=== PATIENT | male | born 1945 | race Caucasian/White ===

== ENCOUNTER 2022-03-29 10:54 | Emergency (ER) | payer MEDICARE, SELFPAY ==
[2022-03-29 11:14] VITALS: BP 129/79; PULSE 62; RESP 18; TEMP 36.8; O2SAT 100; BMI 29.5
[2022-03-29 11:42] LABS: Add Manual Diff / Slide Review NO; Basophils Absolute Auto 100 /uL (0-100); Basophils Percent Auto 0.7 % (0-2); Eosinophils Absolute Auto 300 /uL (0-450); Eosinophils Percent Auto 3.1 % (2-4); Hematocrit 42.2 % (41-53); Hemoglobin 14.2 g/dL (13.5-17.5); Lymphocytes Absolute Auto 2600 /uL (1100-4500); Lymphocytes Percent Auto 32.4 % (25-40); Mean Corpuscular HGB Conc 33.7 % (30-36); Mean Corpuscular Hemoglobin 27.6 PG (26-34); Mean Corpuscular Volume 81.8 fL (80-100); Monocytes Absolute Auto 600 /uL (0-900); Neutrophils Absolute Auto 4600 /uL (1500-7000); Neutrophils Percent Auto 56.8 % (50-75); Platelet Count 330 X10^3/uL (150-400); Red Blood Cell Count 5.16 X10^6/uL (4.5-5.9); Red Cell Distribution Width 13.1 % (11.6-14.8); White Blood Cell Count 8.1 X10^3/uL (4.5-11.0)
[2022-03-29 12:11] LABS: Alanine Aminotransferase 31 IU/L (<50); Albumin 4.5 g/dL (3.5-5.0); Albumin Globulin Ratio 1.3 (1.0-2.8); Alkaline Phosphatase 71 U/L (38-126); Aspartate Aminotransferase 24 IU/L (17-59); BUN Creatinine Ratio 15.2 (6-22); Bilirubin Total 1.1 mg/dL (0.2-1.3); Blood Urea Nitrogen 16 mg/dL (9-20); Calcium 8.9 mg/dL (8.4-10.2); Carbon Dioxide 31 mmol/L (22-32); Chloride 95 mmol/L (98-107); Estimated Glomerular Filt Rate > 60 mL/min (>60); Globulin 3.4 g/dL (1.7-4.1); Glucose 196 mg/dL (80-110); HEMOLYSIS < 15 (0-50); Lipase 72 U/L (23-300); Potassium 3.4 mmol/L (3.4-5.1); Sodium 138 mmol/L (137-145); Total Protein 7.9 g/dL (6.3-8.2)
[2022-03-29 14:48] VITALS: BP 150/74; PULSE 59; O2SAT 98
--- NOTE | 2022-03-29 15:00 | DI.CT.S_ITS ---
PROCEDURE: CT ABDOMEN PELVIS W CON INDICATIONS: L sided abdominal pain, flank pain TECHNIQUE: After the administration of intravenous contrast, axial sections acquired from the lung bases to the pubic symphysis. Coronal and sagittal reformats were performed. For radiation dose reduction, the following was used: automated exposure control, adjustment of mA and/or kV according to patient size. COMPARISON: None. FINDINGS: Image quality: Excellent. Lung bases: Unremarkable. Heart: No significant findings. ABDOMEN: Liver: Unremarkable. Gallbladder: Unremarkable. Biliary ducts: Unremarkable. Pancreas: Unremarkable. Spleen: Unremarkable. Adrenal Glands: Unremarkable. Kidneys and Ureters: Unremarkable. Stomach and Bowel: Stomach, small bowel loops, and colon are unremarkable. Appendix not seen. No evidence of appendicitis. Peritoneum: No abnormal intraperitoneal fluid. No free air. Ventral Wall: No hernias. Abdominal Nodes: No retroperitoneal or mesenteric adenopathy by size criteria. Vessels: Aorta and inferior vena cava are normal in size. PELVIS: Pelvic Organs: Unremarkable. Bladder: Unremarkable. Pelvic Nodes: No enlarged lymph nodes. Miscellaneous: No hernias are seen. 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 IMPRESSION: 1. No acute process. 2. Appendix not seen. No evidence of appendicitis. 3. 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 Dictated by: Alexus Hutchins M.D. on 03/29/2022 at 15:58 Approved by: Alexus Hutchins M.D. on 03/29/2022 at 16:00
[2022-03-29] MEDS: KETOROLAC 30 MG/ML VIAL 15 MG IV (15:15)
[2022-03-29] MEDS: SODIUM CHLORIDE 0.9% 1,000 ML 1000 ML IV (15:15)
--- NOTE | 2022-03-29 15:23 | PC.NURSE ---
Pt complains of left flank pain since last Tuesday. Denies difficulty urinating or any nausea. States he has had a decreased appetite, but is drinking adequately.
--- NOTE | 2022-03-29 20:07 | ED_ITS ---
HPI - Male Genitourinary <Sonam Sawyer PA-C - Last Filed: 03/29/22 20:13> General Chief complaint: Urogenital-Male Stated complaint: LT flank pain sent by Saskia Time Seen by Provider: 03/29/22 14:56 Source: patient Mode of arrival: Ambulatory History of Present Illness HPI Narrative: 76-year-old male with no reported past medical history presents to the ED with 4 days of right-sided flank pain wrapping around to the right groin. Patient endorses some nausea and vomiting 2 days ago. Patient denies fever, chills, chest pain, shortness of breath, dysuria, lightheadedness, dizziness, syncope. Patient denies prior history of kidney stones. Patient denies hematuria, hematochezia, melena, diarrhea. Related Data Allergies Allergy/AdvReac Type Severity Reaction Status Date / Time No Known Drug Allergies Allergy Verified 03/29/22 11:13 Review of Systems <Sonam Swayer PA-C - Last Filed: 03/29/22 20:13> Review of Systems ROS Unobtainable: All systems reviewed & are unremarkable except as noted in HPI and below Constitutional Constitutional: Denies chills, Denies fatigue, Denies fever(s), Denies frequent falls, Denies lethargy and Denies weakness Eyes Eyes: Denies change in vision, Denies eye discharge, Denies irritation and Denies loss of vision ENT Ears, Nose, Mouth, and Throat: Denies change in voice, Denies dizziness, Denies neck pain, Denies sore throat and Denies throat swelling Cardiovascular Cardiovascular: Denies chest pain, Denies irregular heart rhythm, Denies lightheadedness, Denies palpitations, Denies dyspnea, Denies dyspnea on exertion and Denies orthopnea Respiratory Respiratory: Denies cough, Denies dyspnea, Denies dyspnea on exertion and Denies wheezing Gastrointestinal Gastrointestinal: Reports abdominal pain, Denies change in bowel habits, Denies diarrhea, Denies nausea and Denies vomiting Genitourinary Genitourinary: Denies hematuria, Denies flank pain, Denies urinary incontinence and Denies urinary urgency Musculoskeletal Musculoskeletal: Denies back pain, Denies muscle weakness, Denies neck pain, Denies numbness and Denies tingling Integumentary/Breasts Skin/Breast: Denies pruritus, Denies erythema, Denies rash and Denies wounds Neurologic Neurologic: Denies behavioral changes, Denies confusion, Denies dizziness, Denies frequent falls, Denies loss of vision, Denies numbness, Denies tingling and Denies weakness Psychiatric Psychiatric: Denies anxiety, Denies behavioral changes, Denies confusion, Denies depression, Denies homicidal ideation and Denies suicidal ideation Endocrine Endocrine: Denies fatigue, Denies flushing and Denies palpitations Hematologic/Lymphatic Hematologic/Lymphatic: Denies easy bruising Allergic/Immunologic Allergic/Immunologic: Denies urticaria, Denies throat swelling and Denies wheezing Patient History <Sonam Sawyer PA-C - Last Filed: 03/29/22 20:13> Social History Smoking Status: Never smoker Smoking Status: Never smoker alcohol intake frequency: 0-2 drinks per day Substance Use Type: does not use Exam <Sonam Sawyer PA-C - Last Filed: 03/29/22 20:13> Narrative Exam Narrative: Const General:?cooperative, healthy appearing and comfortable [facility] Head:?normal to inspection Ears:?hearing grossly normal bilaterally Nose:?external nose normal Face and sinus:?normal facial exam and sinuses nontender Mouth:?oral mucosae normal Throat:?posterior oropharynx normal Eyes General:?appearance normal, both eyes and all related structures Neck Neck:?normal visual inspection and no lymphadenopathy noted Resp Effort & Inspection:?normal respiratory effort Auscultation:?clear to auscultation bilaterally Cardio Rate:?regular rate Rhythm:?regular rhythm GI Abdomen is soft, nondistended. Abdomen is tender to palpation in the left lower quadrant. No CVA tenderness. Neuro General:?patient alert, patient awake and patient oriented x3 Initial Vital Signs Initial Vital Signs: Vital Signs Temperature 98.2 F 03/29/22 11:14 Pulse Rate 62 03/29/22 11:14 Respiratory Rate 18 03/29/22 11:14 Blood Pressure 129/79 03/29/22 11:14 Pulse Oximetry 100 03/29/22 11:14 Oxygen Delivery Method 03/29/22 11:14 <Ovi Kan DO - Last Filed: 03/30/22 07:15> Initial Vital Signs Initial Vital Signs: Vital Signs Temperature 98.2 F 03/29/22 11:14 Pulse Rate 62 03/29/22 11:14 Respiratory Rate 18 03/29/22 11:14 Blood Pressure 129/79 03/29/22 11:14 Pulse Oximetry 100 03/29/22 11:14 Oxygen Delivery Method 03/29/22 11:14 Course <Sonam Sawyer PA-C - Last Filed: 03/29/22 20:13> Orders Ordered: Discontinued Medications Sodium Chloride (Normal Saline 0.9%) 1,000 mls @ 1,000 mls/hr IV BOLUS ONE Stop: 03/29/22 15:58 Last Infusion: 03/29/22 17:39 Dose: 0 mls/hr Documented By: Admin: 03/29/22 15:15 Dose: 1,000 mls/hr Documented By: PAULINO Ketorolac Tromethamine (Ketorolac 30 Mg/Ml Vial) 15 mg IV NOW ONE Stop: 03/29/22 15:00 Last Admin: 03/29/22 15:15 Dose: 15 mg Documented By: PAULINO Vital Signs Vital signs: Vital Signs - 8 hr 03/29/22 14:48 Pulse Rate 59 L Blood Pressure 150/74 H Pulse Oximetry 98 Oxygen Delivery Method Room Air <Ovi Kan DO - Last Filed: 03/30/22 07:15> Orders Ordered: Discontinued Medications Sodium Chloride (Normal Saline 0.9%) 1,000 mls @ 1,000 mls/hr IV BOLUS ONE Stop: 03/29/22 15:58 Last Infusion: 03/29/22 17:39 Dose: 0 mls/hr Documented By: Admin: 03/29/22 15:15 Dose: 1,000 mls/hr Documented By: PAULINO Ketorolac Tromethamine (Ketorolac 30 Mg/Ml Vial) 15 mg IV NOW ONE Stop: 03/29/22 15:00 Last Admin: 03/29/22 15:15 Dose: 15 mg Documented By: PAULINO Vital Signs Vital signs: Vital Signs - 8 hr 03/29/22 14:48 Pulse Rate 59 L Blood Pressure 150/74 H Pulse Oximetry 98 Oxygen Delivery Method Room Air MDM - Male Genitourinary <Sonam Sawyer PA-C - Last Filed: 03/29/22 20:13> Lab Data Result diagrams: 03/29/22 11:25 12/05/22 11:25 Labs: Lab Results 03/29/22 03/29/22 03/29/22 Range/Units 11:20 11:25 11:25 WBC 8.1 (4.5-11.0) X10^3/uL RBC 5.16 (4.5-5.9) X10^6/uL Hgb 14.2 (13.5-17.5) g/dL Hct 42.2 (41-53) % MCV 81.8 (80-100) fL MCH 27.6 (26-34) PG MCHC 33.7 (30-36) % RDW 13.1 (11.6-14.8) % Plt Count 330 (150-400) X10^3/uL Neut % (Auto) 56.8 (50-75) % Lymph % (Auto) 32.4 (25-40) % Monona % (Auto) 7.0 (3-14) % Eos % (Auto) 3.1 (2-4) % Baso % (Auto) 0.7 (0-2) % Neut # (Auto) 4600 (3397-8017) /uL Lymph # (Auto) 2600 (0460-8205) /uL Monona # (Auto) 600 (0-900) /uL Eos # (Auto) 300 (0-450) /uL Baso # (Auto) 100 (0-100) /uL Sodium 138 (137-145) mmol/L Potassium 3.4 (3.4-5.1) mmol/L Chloride 95 L (98-107) mmol/L Carbon Dioxide 31 (22-32) mmol/L BUN 16 (9-20) mg/dL Creatinine 1.05 (0.66-1.25) mg/dL Estimated GFR > 60 (>60) mL/min BUN/Creatinine Ratio 15.2 (6-22) Glucose 196 H (80-110) mg/dL Calcium 8.9 (8.4-10.2) mg/dL Total Bilirubin 1.1 (0.2-1.3) mg/dL AST 24 (17-59) IU/L ALT 31 (<50) IU/L Alkaline Phosphatase 71 (38-126) U/L Total Protein 7.9 (6.3-8.2) g/dL Albumin 4.5 (3.5-5.0) g/dL Globulin 3.4 (1.7-4.1) g/dL Albumin/Globulin Ratio 1.3 (1.0-2.8) Lipase 72 (23-300) U/L Urine RBC 0-1/hpf (0-5/HPF) Urine WBC 0-1/hpf (0-5/HPF) Ur Squamous Epith Cells 0-1 /hpf (0-5/HPF) Urine Bacteria None seen (None) Ur Culture Indicated? Cult not indicated Urine Dip Bedside Urine Glucose 100 mg/dl Bedside Urine Bilirubin - Negative Bedside Urine Ketone - Negative Urine Specific Hugo 1.030 Bedside Urine Occult Blood - Negative Bedside Urine pH 6.0 Bedside Urine Protein +/- 15 Bedside Urine Urobilinogen - Negative Bedside Urine Nitrite - Negative Bedside Urine Leukocytes - Negative Esterase Imaging Data CT scan - abdomen/pelvis: Radiologist's Impression: PROCEDURE: CT ABDOMEN PELVIS W CON INDICATIONS: L sided abdominal pain, flank pain TECHNIQUE: After the administration of intravenous contrast, axial sections acquired from the lung bases to the pubic symphysis. Coronal and sagittal reformats were performed. For radiation dose reduction, the following was used: automated exposure control, adjustment of mA and/or kV according to patient size. COMPARISON: None. FINDINGS: Image quality: Excellent. Lung bases: Unremarkable. Heart: No significant findings. ABDOMEN: Liver: Unremarkable. Gallbladder: Unremarkable. Biliary ducts: Unremarkable. Pancreas: Unremarkable. Spleen: Unremarkable. Adrenal Glands: Unremarkable. Kidneys and Ureters: Unremarkable. Stomach and Bowel: Stomach, small bowel loops, and colon are unremarkable. Appendix not seen. No evidence of appendicitis. Peritoneum: No abnormal intraperitoneal fluid. No free air. Ventral Wall: No hernias. Abdominal Nodes: No retroperitoneal or mesenteric adenopathy by size criteria. Vessels: Aorta and inferior vena cava are normal in size. PELVIS: Pelvic Organs: Unremarkable. Bladder: Unremarkable. Pelvic Nodes: No enlarged lymph nodes. Miscellaneous: No hernias are seen. 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 IMPRESSION: 1. No acute process. 2. Appendix not seen. No evidence of appendicitis. 3. 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 Dictated by: Alexus Hutchins M.D. on 03/29/2022 at 15:58 Approved by: Alexus Hutchins M.D. on 03/29/2022 at 16:00 [facility] Narrative Medical decision making narrative: 76-year-old male with no reported past medical history presents to the ED with 4 days of right-sided flank pain wrapping around to the right groin. Concern for nephrolithiasis versus UTI versus pyelonephritis versus diverticulitis versus other intra-abdominal pathology. Labs, lactate, UA, CT abdomen pelvis were obtained. Workup largely unremarkable, no CT findings to correlate with patient's symptoms. 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 Recommended to patient to follow-up with his PCP regarding the incidental finding. Patient's symptoms significantly improved with ketorolac. It is possible that patient passed a kidney stone that caused his symptoms. Symptoms could also be due to a musculoskeletal etiology. ED return precautions were discussed with patient. Patient verbalized understanding. <Ovi Kan DO - Last Filed: 03/30/22 07:15> Lab Data Labs: Lab Results 03/29/22 03/29/22 03/29/22 Range/Units 11:20 11:25 11:25 WBC 8.1 (4.5-11.0) X10^3/uL RBC 5.16 (4.5-5.9) X10^6/uL Hgb 14.2 (13.5-17.5) g/dL Hct 42.2 (41-53) % MCV 81.8 (80-100) fL MCH 27.6 (26-34) PG MCHC 33.7 (30-36) % RDW 13.1 (11.6-14.8) % Plt Count 330 (150-400) X10^3/uL Neut % (Auto) 56.8 (50-75) % Lymph % (Auto) 32.4 (25-40) % Monona % (Auto) 7.0 (3-14) % Eos % (Auto) 3.1 (2-4) % Baso % (Auto) 0.7 (0-2) % Neut # (Auto) 4600 (7572-0377) /uL Lymph # (Auto) 2600 (9042-2432) /uL Monona # (Auto) 600 (0-900) /uL Eos # (Auto) 300 (0-450) /uL Baso # (Auto) 100 (0-100) /uL Sodium 138 (137-145) mmol/L Potassium 3.4 (3.4-5.1) mmol/L Chloride 95 L (98-107) mmol/L Carbon Dioxide 31 (22-32) mmol/L BUN 16 (9-20) mg/dL Creatinine 1.05 (0.66-1.25) mg/dL Estimated GFR > 60 (>60) mL/min BUN/Creatinine Ratio 15.2 (6-22) Glucose 196 H (80-110) mg/dL Calcium 8.9 (8.4-10.2) mg/dL Total Bilirubin 1.1 (0.2-1.3) mg/dL AST 24 (17-59) IU/L ALT 31 (<50) IU/L Alkaline Phosphatase 71 (38-126) U/L Total Protein 7.9 (6.3-8.2) g/dL Albumin 4.5 (3.5-5.0) g/dL Globulin 3.4 (1.7-4.1) g/dL Albumin/Globulin Ratio 1.3 (1.0-2.8) Lipase 72 (23-300) U/L Urine RBC 0-1/hpf (0-5/HPF) Urine WBC 0-1/hpf (0-5/HPF) Ur Squamous Epith Cells 0-1 /hpf (0-5/HPF) Urine Bacteria None seen (None) Ur Culture Indicated? Cult not indicated Urine Dip Bedside Urine Glucose 100 mg/dl Bedside Urine Bilirubin - Negative Bedside Urine Ketone - Negative Urine Specific Hugo 1.030 Bedside Urine Occult Blood - Negative Bedside Urine pH 6.0 Bedside Urine Protein +/- 15 Bedside Urine Urobilinogen - Negative Bedside Urine Nitrite - Negative Bedside Urine Leukocytes - Negative Esterase Discharge Plan Departure Patient Disposition: Home Clinical Impression: Abdominal pain Instructions: DI for Abdominal Pain-Adult Activity Restrictions/Additional Instructions: You were evaluated in the ED today for abdominal pain. Your labs, urine, CT abdomen pelvis did not show any acute findings to explain your symptoms. It is possible that you passed a kidney stone prior to the CT. Your CT did show an i ncidental finding in your left hip that might be consistent with a endochondroma or a low-grade chondrosarcoma. Please follow-up with your primary care doctor regarding this CT finding. If your abdominal pain worsens or you start uncontrollably vomiting, are unable to keep down any fluids, please return to the ED for further evaluation. Referrals: Hyun Lange, ELENA [Primary Care Provider] - Visit Report Forms: Patient Portal/API <Ovi Kan DO - Last Filed: 03/30/22 07:15> Cosign ED Attending Cosignature Attestation: Dr Kan Co-Sign Statement: I was available for consultation during this patient's emergency department visit. This chart is signed by myself for administrative purposes only. I did not have direct contact with this patient during this visit. They were seen independently by the APC.
[2022-03-29 20:20] LABS: Bacteria Urine None Seen; Culture Indicated Urine Cult Not Indicated; RBC Urine 0-1/HPF (0-5/HPF); Squamous Epithelial Cell Urine 0-1 /HPF (0-5/HPF); WBC Urine 0-1/HPF (0-5/HPF)
== END 2022-03-29 17:40 | disposition home or self-care (01) ==
PROVIDERS: Emergency Medicine; Emergency Provider Student in an Organized Health Care Education/Training Program; PCP Nurse Practitioner Family
DX: R10.9 Unspecified abdominal pain (principal); R11.2 Nausea with vomiting, unspecified
CPT/HCPCS: 74177; 80053; 81003; 81015; 83690; 85025; 96361; 96374; 99284; J1885; Q9967